=== PATIENT | female | born 1985 | race Caucasian/White ===

== ENCOUNTER 2018-06-04 13:54 | Inpatient (IN) | payer BC ==
[2018-06-04] VITALS (46 sets, daily range): BP systolic 78–141; BP diastolic 42–73
[~2018-06-04] VITALS: Ht 165.1 cm; Wt 103.1 kg
--- NOTE | 2018-06-04 13:40 | NUR ---
LEONCIO LLANES presented to unit accompanied by Juan, with c/o INDUCTION. LEONCIO LLANES weighed, gowned, voided, and to bed. EFHM and TOCO applied, VS taken. LEONCIO LLANES oriented to bed controls, call light, TV, heat, and A/C controls.
--- OUTSIDE RECORDS SUMMARY | 2018-06-04 13:58 | XMS REPORT ---
Author Author [facility] Address [address] [place] [address] Care Team Providers Care Anthropologist Name Role Phone ISRA HUMPHREYS Unavailable PROBLEMS Type Condition ICD9-CM Code SRB15-CA Code Onset Dates Condition Status SNOMED Code Problem Well woman exam with routine gynecological exam V72.31 Apr, 0 [id number] Problem Well woman exam with routine gynecological exam Z01.419 Apr, 0 [id number] Problem Encounter for supervision of other normal , third trimester Z34.83 Active [id number] Problem Closed nondisplaced fracture of distal phalanx of right great toe 826.0 Aug, 0 [id number] Problem Closed nondisplaced fracture of distal phalanx of right great toe S92.424A Aug, 0 [id number] Problem care, subsequent , first trimester V22.1 Nov 0 [id number] Problem care, subsequent , first trimester Z34.81 Nov, 0 [id number] ALLERGIES Substance Reaction Event Type Date Status soybean itching Non Drug Allergy Apr, Active milk hives Non Drug Allergy Apr, Active LATEX rash Non Drug Allergy Apr, Active Methergine itching Drug Allergy Apr, Active Keflex rash Drug Allergy Apr, Active ENCOUNTERS Encounter [facility] Date [facility] [address] [address] Apr, [facility] [address] [address] Apr, Encounter for supervision of other normal , third trimester Z34.83 [facility] MICHELLE FRIEDMAN [address] [address] Apr, [facility] MICHELLE [address] [address] Apr, [facility]IRD[facility] FRIEDMAN [address] [address] Apr, DEIRDRE FRIEDMAN [address] [address] Apr, Encounter for supervision of other normal , third trimester Z34.83 [facility] FRIEDMAN [address] [place] [address] Apr, Encounter for supervision of other normal , third trimester Z34.83 [facility] [address] [place] [address] Apr, Decreased movements in third trimester, single or unspecified fetus O36.8130 [facility] [address] [place] [address] Mar, [facility] [address] [address] Mar, Encounter for supervision of other normal , third trimester Z34.83 [facility] [address] [place] [address] Mar, Encounter for supervision of normal first in second trimester Z34.02 [facility] [address] [place] [address] Mar, [facility] [address] [place] [address] Feb, [facility] [address] [facility] [id number] [address] Feb, [facility] [id number] [address] Jan, [facility] [id number], [place] [address] Jan, [facility] [address] [facility] [id number], [place] [address] Nov, [facility] [id number], [place] [address] Jul, IMMUNIZATIONS No Known Immunizations SOCIAL HISTORY Never Assessed REASON FOR VISIT OB with rib pain PLAN OF CARE Activity Details Follow Up 1 Week Reason:Return Obstetrical Visit VITAL SIGNS Height 65in in 2018-04-17 Weight 217 lbs 2018-04-17 Temperature 98.2 degrees Fahrenheit 2018-04-17 Heart Rate 112 bpm 2018-04-17 BMI 36.11 kg/m2 2018-04-17 Blood pressure systolic 118 mmHg 2018-04-17 Blood pressure diastolic 74 mmHg 2018-04-17 MEDICATIONS Unknown Medications RESULTS No Results PROCEDURES No Known procedures INSTRUCTIONS MEDICATIONS ADMINISTERED No Known Medications MEDICAL (GENERAL) HISTORY Type Description Date Surgical History Gallbladder Surgical History D &C
--- OUTSIDE RECORDS SUMMARY | 2018-06-04 13:58 | XMS REPORT | Continuity of Care Document ---
Author Organization Unknown Address Unknown Allergies There is no data. Medications There is no data. Problems There is no data. Procedures There is no data. Results There is no data. Encounters ACCT No. Visit Date/Time Discharge Status Pt. Type Provider Facility Loc./Unit Complaint [id number] 05/29/2018 11:30:00 05/29/2018 23:59:59 [facility] Outpatient [facility]LE ARIAS
[2018-06-04] MEDS ORDERED: D5 LR IV SOLUTION 1,000 ML IV ONE (14:11)
[2018-06-04] MEDS ORDERED: OXYTOCIN/NORMAL SALINE 500 ML IV ONE (14:11)
[2018-06-04] MEDS ORDERED: MINERAL OIL CONCENTRATE 99.9% 15 ML UDC TOP PRN (15:15)
[2018-06-04 15:37] LABS: BASOPHILS % (AUTO) 0 % (0-10); EOSINOPHILS # (AUTO) 0.1 10^3/uL (0.0-0.3); EOSINOPHILS % (AUTO) 1 % (0-10); HEMATOCRIT 36 % (35-52); HEMOGLOBIN 11.7 G/DL (11.5-16.0); LYMPHOCYTES # (AUTO) 1.9 X 10^3 (1.0-4.0); LYMPHOCYTES % (AUTO) 14 % (12-44); MEAN CORPUSCULAR HEMOGLOBIN 30 PG (25-34); MEAN CORPUSCULAR HGB CONC 33 G/DL (32-36); MEAN CORPUSCULAR VOLUME 90 FL (80-99); MEAN PLATELET VOLUME 11.3 FL (7.4-10.4); MONOCYTES # (AUTO) 0.8 X 10^3 (0.0-1.0); MONOCYTES % (AUTO) 6 % (0-12); NEUTROPHILS # (AUTO) 10.6 X 10^3 (1.8-7.8); NEUTROPHILS % (AUTO) 79 % (42-75); PLATELET COUNT 195 10^3/uL (130-400); RED CELL DISTRIBUTION WIDTH 15.2 % (10.0-14.5); WHITE BLOOD COUNT 13.4 10^3/uL (4.3-11.0)
--- NOTE | 2018-06-04 16:05 | History & Physical-OB ---
OB - Chief Complaint & HPI Date/Time Date of Admission: Date of Admission: Jun 04, 2018 at 13:54 Date seen by a Provider: Jun 04, 2018 Time Seen by a Provider: 16:00 Chief Complaint/History OB-Reason for Admission/Chief: Induction of Labor Hx : 4 Hx Para: 2 Expected Date of Delivery: June 16, 2018 Gestational Age in Weeks: 38 Indication for : other (Large for Gestational Age 2. Mental Health Disorder (anxiety requiring medication)) Admission Nurse Assessment Rev: Yes Allergies and Home Medications Allergies Coded Allergies: cephalexin (Verified Allergy, Mild, rash, 06/04/18) latex (Verified Allergy, Mild, rash, 06/04/18) Patient Home Medication List Home Medication List Reviewed: Yes OB - History Hx of Present Care: Yes Ultrasounds: Normal mid trimester US Obstetrical Complications: Other (Large for Gestational Age 2. Polyhydramnios) Medical Complications: Other (Anxiety) Information Induced Hypertension: No Maternal Gestational Diabetes: No Hemorrhage: No Obstetrical History Hx : 4 Hx Para: 2 Hx # Term Pregnancies: 2 Hx # Pregnancies: 0 Number of Living Children: 2 Hx Termination: No Hx Multiple Gestation: No Hx Ectopic : No Hx Stillbirth: Yes (1 second trimester demise) Hx Complication: Yes (1 second trimester demise) Hx Induced Hypertens: No Hx Maternal Gestational Diabet: No Hx Hemorrhage: No Delivery History Hx Dystocia: No Hx Forceps Assisted Delivery: No Hx Vacuum Extraction Assisted: No Hx Placenta Abnormality: No Hx Distress: No Hx Large For Gestational Age I: Yes Hx Small for Gestational Age I: No Hx Section: No Hx Vaginal Delivery Post C-Sec: No Hx Blood Disorders: No Adverse Rxn to Tranfusion: No Patient Past Medical History Anxiety Disorder Seasonal Allergies Social History/Family History HIV/AIDS: No Recent Infectious Disease Expo: No Sexually Transmitted Disease: No Alcohol Use: Denies Use Recreational Drug Use: No Smoking Cessation: Never smoker 2nd Hand Smoke Exposure: No Significant Family Hx Noncontributory Immunizations Hepatitis A: No Hepatitis B: No Tetanus Booster (TDap): Unknown Rubella: immune RPR/VDRL: Negative GBS Status: Unknown HBsAG: Negative OB - Admission Exam Physical Exam HEENT: PERRLA Heart: Rhythm Normal Lungs: Clear Abdomen: Gravid Extremities: Edema (+2) Reflexes: Normal Cervical Dilatation: 2cm Effacement: Other (40%) Station: -3 Membranes: Intact Heart Rate: 130's Accelerations: Accelerations Present Decelerations: No Decelerations Short Term Variability: Present Watch Technician Variability: Average (6-25) Contractions on Admission: 6-10 Minutes Apart Intensity: Moderate [place] Scoring Tool (Modified) Dilation (cm): 1-2cm (1) Effacement (%): 31-51% (1) Cervix Consistency: Medium(1) Cervix Position: Posterior (0) Labs Laboratory Tests Test 06/04/18 15:28 Range/Units White Blood Count 13.4 H 4.3-11.0 10^3/uL Red Blood Count 3.96 L 4.35-5.85 10^6/uL Hemoglobin 11.7 11.5-16.0 G/DL Hematocrit 36 35-52 % Mean Corpuscular Volume 90 80-99 FL Mean Corpuscular Hemoglobin 30 25-34 PG Mean Corpuscular Hemoglobin Concent 33 32-36 G/DL Red Cell Distribution Width 15.2 H 10.0-14.5 % Platelet Count 195 130-400 10^3/uL Mean Platelet Volume 11.3 H 7.4-10.4 FL Neutrophils (%) (Auto) 79 H 42-75 % Lymphocytes (%) (Auto) 14 12-44 % Monocytes (%) (Auto) 6 0-12 % Eosinophils (%) (Auto) 1 0-10 % Basophils (%) (Auto) 0 0-10 % Neutrophils # (Auto) 10.6 H 1.8-7.8 X 10^3 Lymphocytes # (Auto) 1.9 1.0-4.0 X 10^3 Monocytes # (Auto) 0.8 0.0-1.0 X 10^3 Eosinophils # (Auto) 0.1 0.0-0.3 10^3/uL Basophils # (Auto) 0.0 0.0-0.1 10^3/uL OB - Assessment/Plan/Diagnosis Assessment Assessment: induction of labor Admission Dx Intrauterine at 38 2/7 weeks Mental Health Disorder (Anxiety) Large for Gestational Age Polyhydramnios Admission Status: Inpatient Order (span 2 midnights) Reason for Inpatient Admission: Pitocin Induction of Labor with expectant vaginal delivery Plan Plan: Induction Induction Method: per Pitocin Protocol ISRA HUMPHREYS DO Jun 04, 2018 16:05
[2018-06-04] MEDS ORDERED: SUFENTA 0.6MCG/ML BUPIVA 0.125 100 ML ONE (16:22)
[2018-06-04] MEDS ORDERED: fentaNYL INJECTION 100 MCG/2 ML AMP ONE ×2 (16:23→18:42)
[2018-06-04] MEDS ORDERED: BUPIVACAINE 0.5% 30 ML (SENSORCAINE) VIAL ONE (16:23)
[2018-06-04] MEDS ORDERED: BUPIVACAINE 0.25% 30 ML (SENSORCAINE) VIAL ONE ×2 (16:25→18:42)
[2018-06-04 16:54] LABS: BILIRUBIN,URINE NEGATIVE (NEGATIVE); CLARITY,URINE CLEAR; COLOR,URINE YELLOW; GLUCOSE, URINE (UA) NEGATIVE (NEGATIVE); KETONES,URINE 2+ (NEGATIVE); LEUKOCYTE ESTERASE ,URINE NEGATIVE (NEGATIVE); NITRITE,URINE NEGATIVE (NEGATIVE); PH,URINE 7 (5-9); PROTEIN,URINE NEGATIVE (NEGATIVE); UROBILINOGEN,URINE NORMAL (NORMAL)
[2018-06-04] MEDS ORDERED: BUTORPHANOL INJ 2 MG/ML (STADOL) VIAL ONE (17:02)
[2018-06-04 17:08] LABS: WBC,URINE 0-2 /HPF
[2018-06-04 17:09] LABS: BACTERIA,URINE NEGATIVE /HPF
[2018-06-04] MEDS ORDERED: BUTORPHANOL INJ 2 MG/ML (STADOL) VIAL IV ONE (17:15)
[2018-06-04] MEDS ORDERED: LIDOCAINE 1% INJ 50 ML (XYLOCAINE) VIAL IJ ONE (18:15)
[2018-06-04] MEDS: D5 LR IV SOLUTION 1,000 ML IV SCH ×2 (18:20→20:48)
[2018-06-04] MEDS ORDERED: LACTATED RINGERS 1,000 ML IV ONE ×2 (18:37)
[2018-06-04] MEDS ORDERED: ONDANSETRON 4 MG/2 ML (SDV) Z0FRAN IV PRN (18:45)
[2018-06-04] MEDS ORDERED: NALOXONE 0.4 MG/ML 1 ML (NARCAN) VIAL IV PRN (18:45)
[2018-06-04] MEDS ORDERED: EPIDURAL (SUFENTA 0.6MCG/ML BUPIVA 0.125%) 100 ML BAG EPI PRN (18:45)
[2018-06-04] MEDS ORDERED: CATHETER FLUSH 10 ML SYR IV SCH (22:00)
[2018-06-05] VITALS (26 sets, daily range): BP systolic 94–135; BP diastolic 44–71
--- NOTE | 2018-06-05 02:57 | OB Labor & Delivery Record ---
Vag Delivery Note Vag Delivery Note Date of Delivery: 06/05/18 Preoperative Diagnosis: Cindy Guerrier is a (32 /Para 4 / 2,Gestational Age (wks)38with [Large for Gestational Age, Polyhydramnios, and Anxiety Disorder ] Postoperative Diagnosis: Same Surgeon: ISRA HUMPHREYS Online Services Manager: [None] Anesthesia: [Epidural] Delivery Type: [Normal Spontaneous Vaginal Delivery ] Findings: [] Viable [Male] , apgars [], weight [9 lbs] Lacerations: Superficial perineal laceration, hemostatic, not repaire Intact placenta with 3 vessel cord. No nuchal cord, body cord or shoulder dystocia IV Pitocin was given for hemorrhage prophylaxis Estimated Blood Loss: [300] ml Complications: None Condition: Stable Description of Procedure: The patient is a 32 year old female who presented [Pitocin Induction of Labor]. She was admitted and informed consent was obtained. Her labor course was remarkable for [decelerations during that active labor phase] She progressed to complete dilatation and began to push. She was then set up for delivery. The infant's head was delivered atraumatically in the [ELIANA] position. The shoulders and remainder of the ' s body were then delivered without difficulty. Upon delivery, the head was held below the level of the perineum and the mouth and nares were bulb suctioned. The cord was doubly clamped and cut and the was placed on the mother's chest with pediatric staff in attendance. An intact placenta with 3-vessel cord delivered via Leydi and there was found to be minimal bleeding.~ Vigorous fundal massage was performed and the fundus was found to be firm. IV oxytocin was given. Examination of the vagina and perineum revealed a [first degree perineal] laceration not requiring repair. Following the repair, sponge, instrument and needle counts were correct. Mom and baby were both in stable condition in the labor suite. Vitals - Labs Vital Signs - I&O Vital Signs Date Time Temp Pulse Resp B/P (MAP) Pulse Ox O2 Delivery O2 Flow Rate FiO2 06/04/18 20:50 99 18 115/57 (76) 98 06/04/18 20:35 81 18 110/54 (72) 100 06/04/18 20:20 94 18 114/55 (74) 100 Non Rebreather 15.00 06/04/18 20:15 76 18 108/54 (72) 100 Non Rebreather 15.00 06/04/18 20:10 93 18 108/56 (73) 100 Non Rebreather 15.00 06/04/18 20:05 90 18 113/54 (73) 100 Non Rebreather 15.00 06/04/18 20:00 112 18 102/50 (67) 100 Non Rebreather 15.00 06/04/18 19:55 71 18 110/53 (72) 100 Non Rebreather 15.00 06/04/18 19:50 82 18 101/57 (72) 100 Non Rebreather 15.00 06/04/18 19:45 73 18 99/53 (68) 100 Non Rebreather 15.00 06/04/18 19:42 83 18 99/55 (70) 100 Non Rebreather 15.00 06/04/18 19:39 95 18 85/46 (59) 100 Non Rebreather 15.00 06/04/18 19:36 71 18 103/59 (74) 100 Non Rebreather 15.00 06/04/18 19:33 85 18 111/65 (80) 100 Non Rebreather 15.00 06/04/18 19:31 109 18 106/55 (72) 100 Non Rebreather 15.00 06/04/18 19:30 94 18 78/42 (54) Non Rebreather 15.00 06/04/18 19:12 108 20 115/48 (70) 97 06/04/18 19:10 83 117/58 (77) 06/04/18 19:06 125 130/57 (81) 98 Room Air 06/04/18 19:00 96 129/67 (87) 98 06/04/18 18:49 99 141/67 (91) 99 06/04/18 18:45 97 131/69 (89) Room Air 06/04/18 18:30 98.6 85 18 120/65 (83) Room Air 06/04/18 18:10 85 118/71 (87) 97 06/04/18 18:00 75 18 116/72 (87) Room Air 06/04/18 17:45 80 117/65 (82) 06/04/18 17:30 81 112/69 (83) Room Air 06/04/18 17:15 92 122/69 (86) Room Air 06/04/18 17:00 98 122/70 (87) Room Air 06/04/18 16:45 96 122/73 (89) Room Air 06/04/18 16:30 91 113/71 (85) Room Air 06/04/18 16:15 90 121/73 (89) Room Air 06/04/18 16:00 95 18 115/70 (85) Room Air 06/04/18 15:30 Room Air 06/04/18 15:00 Room Air 06/04/18 14:30 Non Rebreather 15.00 06/04/18 14:00 94 20 136/72 (93) Room Air I & O 06/05/18 07:00 Intake Total 2000 ml Balance 2000 ml Labs Laboratory Tests 06/04/18 14:00: Urine Color YELLOW, Urine Clarity CLEAR, Urine pH 7, Urine Specific [place] 1.010L, Urine Protein NEGATIVE, Urine Glucose (UA) NEGATIVE, Urine Ketones 2+H, Urine Nitrite NEGATIVE, Urine Bilirubin NEGATIVE, Urine Urobilinogen NORMAL, Urine Leukocyte Esterase NEGATIVE, Urine RBC (Auto) NEGATIVE, Urine RBC NONE, Urine WBC 0-2, Urine Crystals NONE, Urine Bacteria NEGATIVE, Urine Casts NONE, Urine Mucus NEGATIVE, Urine Culture Indicated NO 06/04/18 15:28: White Blood Count 13.4H, Red Blood Count 3.96L, Hemoglobin 11.7, Hematocrit 36, Mean Corpuscular Volume 90, Mean Corpuscular Hemoglobin 30, Mean Corpuscular Hemoglobin Concent 33, Red Cell Distribution Width 15.2H, Platelet Count 195, Mean Platelet Volume 11.3H, Neutrophils (%) (Auto) 79H, Lymphocytes (%) (Auto) 14, Monocytes (%) (Auto) 6, Eosinophils (%) (Auto) 1, Basophils (%) (Auto) 0, Neutrophils # (Auto) 10.6H, Lymphocytes # (Auto) 1.9, Monocytes # (Auto) 0.8, Eosinophils # (Auto) 0.1, Basophils # (Auto) 0.0 ISRA HUMPHREYS DO Jun 05, 2018 02:57
[2018-06-05] MEDS ORDERED: OXYTOCIN/NORMAL SALINE 500 ML IV SCH (04:15)
[2018-06-05] MEDS ORDERED: MEASLES,MUMPS,RUBELLA 1 EA INJ SQ ONE (04:15)
[2018-06-05] MEDS ORDERED: BENZOCAINE/MENTHOL (DERMOPLAST) 56 ML CAN TP PRN (04:15)
[2018-06-05] MEDS ORDERED: WITCH HAZEL(TUCKS) 40 EA JAR TOP PRN (04:15)
[2018-06-05] MEDS ORDERED: TETANUS,DIPTH,PERTUSS P/F (BOOSTRIX) 0.5 ML VIAL IM ONE (04:15)
[2018-06-05] MEDS ORDERED: DIBUCAINE (NUPERCAINAL) 1% OINT 30 GM ONE (04:44)
--- NOTE | 2018-06-05 05:00 | NUR ---
ff 1 below umbilicus, moderate rubra noted. pericare completed. gown changed. epidural cath removed. pt tolerated well. tip intact. bandage applied to area. pt assisted to w'c and taken down to 310. pt assisted to bathroom. positive void. pericare completed. tucks and Nupercaine applied. pt assisted back to bed. info papers discussed. pt denies any needs at this time.
[2018-06-05] MEDS ORDERED: DIBUCAINE (NUPERCAINAL) 1% OINT 30 GM TOP PRN (05:30)
[2018-06-05] MEDS: IBUPROFEN 800 MG (MOTRIN) TAB PO SCH ×3 (05:31→21:30)
[2018-06-05] MEDS: oxyCODONE/APAP 5/325MG (PERCOCET 5) TABLET PO PRN ×4 (05:32→22:38)
[2018-06-05] MEDS ORDERED: FOLI0.4T2 PO (05:38)
[2018-06-05] MEDS ORDERED: PREN-8 PO (05:38)
--- NOTE | 2018-06-05 06:45 | NUR ---
pt assisted to the bathroom. moderate rubra noted. with 3-4cm clot. ff 2 below. Seals on unit making rounds. notified of vaginal bleeding. no new orders at this time.
--- NOTE | 2018-06-05 07:45 | NUR ---
called into pt's room. requesting assistance up to BR. FFu/1. standby assist x2. c/o feeling dizzy after sitting down on toilet. cool wash cloth applied to forehead. color pale. arlene-care done by RN. assisted back to bed via w/c. placed in low SF position. fan on. vs taken. reports feeling better. will cont to monitor. Addendum: 06/05/18 at 1015 by ANA MARIA MCKEON RN moderate rubra noted on v-pad.
--- NOTE | 2018-06-05 08:00 | NUR ---
initial shift assessment completed, see interventions for further. @ side.
--- NOTE | 2018-06-05 09:10 | NUR ---
requesting assistance up to BR. [employer] director industrial nursing assisted pt into BR via w/c. arlene-care offered. lt yessica noted. ambulated to bed with standby assist x1. c/o feeling dizzy with ambulation. assisted to bed. cool wash cloth to forehead. will cont to monitor. Addendum: 06/05/18 at 1016 by ANA MARIA MCKEON RN fundal massage completed. FFu/1.
[2018-06-05] MEDS: DOCUSATE SODIUM 100 MG (COLACE) CAP PO SCH ×2 (09:30→21:30)
--- NOTE | 2018-06-05 14:30 | NUR ---
up to shower.
--- NOTE | 2018-06-05 14:42 | Anesthesia-Regional Post-Op ---
Regional Patient Condition Mental Status: Alert, Oriented x3 Circulation: Same as Pre-Op Headache: Absent Sensation: Full Recovery Motor Block: Absent Post Op Complications Complications None Follow Up Care/Instructions Patient Instructions None needed. Anesthesia/Patient Condition Patient was seen this morning in post-op rounds and she was doing well, no complaints, stable vital signs, no apparent adverse anesthesia problems. KG JONES DO Jun 05, 2018 14:42
--- NOTE | 2018-06-05 19:18 | NUR ---
report given to YANETH Mederos.
[2018-06-06] MEDS: oxyCODONE/APAP 5/325MG (PERCOCET 5) TABLET PO PRN ×2 (04:39→11:54)
[2018-06-06] MEDS: IBUPROFEN 800 MG (MOTRIN) TAB PO SCH ×2 (04:39→09:38)
[2018-06-06 05:40] VITALS: BP 108/70
[2018-06-06 07:22] LABS: BASOPHILS % (AUTO) 0 % (0-10); EOSINOPHILS # (AUTO) 0.2 10^3/uL (0.0-0.3); EOSINOPHILS % (AUTO) 2 % (0-10); HEMATOCRIT 25 % (35-52); LYMPHOCYTES # (AUTO) 2.3 X 10^3 (1.0-4.0); LYMPHOCYTES % (AUTO) 15 % (12-44); MEAN CORPUSCULAR HEMOGLOBIN 30 PG (25-34); MEAN CORPUSCULAR HGB CONC 33 G/DL (32-36); MEAN CORPUSCULAR VOLUME 91 FL (80-99); MEAN PLATELET VOLUME 10.4 FL (7.4-10.4); MONOCYTES % (AUTO) 6 % (0-12); NEUTROPHILS # (AUTO) 12.2 X 10^3 (1.8-7.8); NEUTROPHILS % (AUTO) 77 % (42-75); PLATELET COUNT 156 10^3/uL (130-400); WHITE BLOOD COUNT 15.8 10^3/uL (4.3-11.0)
[2018-06-06 07:26] LABS: HEMOGLOBIN 8.3 G/DL (11.5-16.0)
--- NOTE | 2018-06-06 08:05 | Discharge Inst-Women's Service ---
Discharge Inst-Women's Serv Depart Medication/Instructions New, Converted or Re-Newed RX: RX Given to Pt/Family Instructions Pelvic rest for 6 weeks No heavy lifting, less than 20 lbs No strenuous activities Tub soaks 2-3 x daily Return to office in 6 weeks Call with problems or questions Final Diagnosis Intrauterine at 38 weeks Large for Gestational Age Polyhydramnios Anxiety Disorder History of Second Trimester Demise Activity Activity: Activity as Tolerated Driving Instructions: You May Drive NO SMOKING: NO SMOKING Nothing Inside Vagina: No Douching, No [place], No Tampons Diet Discharge Diet: No Restrictions Symptoms to Report to : Bleeding Excessive, Fever Over 101 Degrees F, Vaginal Bleeding Increase For Any Problems or Questions: Contact Your Physician Skin/Wound Care Operative Area Clean and Dry: Keep Incision Clean/Dry Bathing Instructions: ISRA Dillard DO Jun 06, 2018 08:05
[2018-06-06] MEDS ORDERED: DOCU100C37 PO (08:09)
[2018-06-06] MEDS ORDERED: OXYC1TAB87 PO (08:09)
[2018-06-06] MEDS ORDERED: IBUP-1780 PO (08:09)
[2018-06-06] MEDS ORDERED: HYDR4CRE RC (08:12)
--- NOTE | 2018-06-06 08:20 | Discharge Summary ---
Diagnosis/Chief Complaint Date of Admission Jun 04, 2018 at 13:54 Date of Discharge June 06, 2018 Discharge Date: Jun 06, 2018 Discharge Time: 08:00 Admission Diagnosis Admission Diagnosis Intrauterine at 38 weeks Large for Gestational Age Polyhydramnios Maternal Anxiety Disorder Discharge Diagnosis Intrauterine at 38 weeks Large for Gestational Age Polyhydramnios Maternal Anxiety Disorder Reason Hospital Visit Pitocin Induction of Labor Discharge Summary Hospital Course Hospital Course Ms. Guerrier was admitted for an Induction of Labor. She subsequently delivered a healthy viable male infant without complications. The remainder of her hospitalization was unremarkable. Her vital signs remained stable throughout her hospitalization. She was discharged to home with instructions, prescriptions and a follow up appointment. Labs Laboratory Tests 06/04/18 14:00: Urine Specific [place] 1.010L, Urine Ketones 2+H 06/04/18 15:28: White Blood Count 13.4H, Red Blood Count 3.96L, Red Cell Distribution Width 15.2H, Mean Platelet Volume 11.3H, Neutrophils (%) (Auto) 79H, Neutrophils # ( Auto) 10.6H 06/06/18 07:10: White Blood Count 15.8H, Red Blood Count 2.76L, Red Cell Distribution Width 15.0H, Neutrophils (%) (Auto) 77H, Neutrophils # (Auto) 12.2H, Hemoglobin 8.3#L , Hematocrit 25L Procedures Pitocin Induction of Labor Epidural Anesthesia Artificial Rupture of Membranes Normal Spontaneous Vaginal Delivery. Discharge Physical Examination Allergies: Coded Allergies: cephalexin (Verified Allergy, Mild, rash, 06/04/18) latex (Verified Allergy, Mild, rash, 06/04/18) Vitals & I&Os Vital Signs Date Time Temp Pulse Resp B/P (MAP) Pulse Ox O2 Delivery O2 Flow Rate FiO2 06/06/18 05:40 98.0 88 18 108/70 (83) 99 Room Air 06/04/18 20:20 15.00 General Appearance: Alert, Oriented X3, No Acute Distress HEENT: PERRLA, EOMI Respiratory: Clear to Auscultation Cardiovascular: Regular Rate, No Murmurs Abdominal: Normal Bowel Sounds, No Tenderness Extremities: No Clubbing, No Cyanosis Skin: No Rashes Neuro: Normal Gait, Normal Speech Discharge Home Medications Reviewed and agree with Discharge Medication list on patient's Discharge Instruction sheet Instructions to Patient/Family Please see electronic discharge instructions given to patient. Clinical Quality Measures DVT/VTE Risk/Contraindication: Risk Factor Score Per Nursin RFS Level Per Nursing on Admit: 1=Low/No VTE PPX ISRA HUMPHREYS DO Jun 06, 2018 08:20
[2018-06-06 09:30] VITALS: BP 105/71
[2018-06-06] MEDS: DOCUSATE SODIUM 100 MG (COLACE) CAP PO SCH (09:38)
--- NOTE | 2018-06-06 10:56 | NUR ---
PP home instructions given verbal and written. Verbalizes understanding.
--- NOTE | 2018-06-06 12:15 | NUR ---
To exit - pt ambulatory. Accompanied by RN and . Juan carrying baby in car seat.
== END 2018-06-06 12:15 | disposition home or self-care (01) | DRG 807 ==
LOC: LDRP 13:54
PROVIDERS: ADMIT Obstetrics & Gynecology; ATTEND Obstetrics & Gynecology
PROC: 3E033VJ Introduction of Other Hormone into Peripheral Vein, Percutaneous Approach (ICD-10-PCS; 2018-06-04)
PROC: 10E0XZZ Delivery of Products of Conception, External Approach (ICD-10-PCS; principal; 2018-06-05)
DX: O36.63X0 Maternal care for excessive fetal growth, third trimester, not applicable or unspecified (principal); O99.344 Other mental disorders complicating childbirth; F41.9 Anxiety disorder, unspecified; O40.3XX0 Polyhydramnios, third trimester, not applicable or unspecified; O70.0 First degree perineal laceration during delivery; Z37.0 Single live birth; Z3A.38 38 weeks gestation of pregnancy
CPT/HCPCS: 36415; 81000; 85025; 86850; 86900; 86901; 87088